=== PATIENT | male | born 1950 | race Caucasian/White ===

== ENCOUNTER 2019-08-30 09:53 | Outpatient (CLI) | payer MEDICARE, SELFPAY ==
--- NOTE | 2019-08-30 | ECG_ITS ---
Measurements Intervals [place] Rate: 70 P: 15 LA: 145 QRS: -52 QRSD: 112 T: 12 QT: 394 QTc: 425 Interpretive Statements SINUS RHYTHM LEFT ANTERIOR FASCICULAR BLOCK ABNORMAL ECG Electronically Signed On 08-30-2019 11:38:14 CDT by Benton Mahoney D.O.
[2019-08-30 11:28] LABS: Basophils Percent Auto 0.4 % (0.2-1.2); Eosinophils Absolute Auto 0.1 K/mm3 (0-0.3); Eosinophils Percent Auto 2.1 % (0-4.4); Hematocrit 45.1 % (42.0-52.0); Hemoglobin 15.4 g/dL (14.0-18.0); Immature Granulocyte Absolute 0.03 K/mm3 (0.00-0.031); Immature Granulocyte Percent A 0.6 % (0-0.5); Lymphocytes Absolute Auto 1.56 K/mm3 (0.9-3.2); Lymphocytes Percent Auto 29.7 % (18.3-44.2); Mean Corpuscular HGB Conc 34.1 g/dl (32-36); Mean Corpuscular Hemoglobin 31.4 pg (26-34); Mean Corpuscular Volume 91.9 fl (80-100); Mean Platelet Volume 9.6 fl (7.4-10.4); Monocytes Absolute Auto 0.6 K/mm3 (0.1-0.6); Monocytes Percent Auto 11.4 % (2.6-8.5); Neutrophils Absolute Auto 2.9 K/mm3 (1.3-6.7); Neutrophils Percent Auto 55.8 % (45.5-73.1); Platelet Count Result 197 k/mm3 (150-375); Red Blood Count 4.91 M/mm3 (4.6-6.20); Red Cell Distribution Width 12.6 % (11.5-14.5); White Blood Count 5.3 K/mm3 (4.5-10.0)
[2019-08-30 11:41] LABS: Alanine Aminotransferase 36 U/L (4-50); Albumin Level 4.6 g/dL (3.5-5.1); Alkaline Phosphatase 80 U/L (38-126); Aspartate Amino Transferase 40 U/L (17-59); Bilirubin,Total 0.6 mg/dL (0.2-1.3); Blood Urea Nitrogen 18 mg/dL (9-20); Carbon Dioxide 25 mmol/L (22-30); Chloride 101 mmol/L (98-107); Cholesterol 246 mg/dL (0-200); Estimated Glomerular Filt Rate > 60; Glucose 103 mg/dL (75-110); HDL Direct 34 mg/dL; Sodium 137 mmol/L (137-145); Triglycerides 183 mg/dL (<150)
[2019-08-30 11:52] LABS: LDL Cholesterol Direct 173 mg/dL
[2019-08-30 11:54] LABS: Hemoglobin A1C 5.7 % (<5.7)
[2019-08-30 12:15] LABS: Prostate Specific Antigen 1.4 ng/mL (< OR = 4.0)
[2019-08-30 12:31] LABS: MALB Creatinine Ratio 11.1 mg/g (0-30); Microalbumin Urine Random 35.6 mg/L (0-16.7)
[2019-08-30 12:32] LABS: Vitamin D 25 Hydroxy 55.1 ng/mL
== END 2019-08-30 09:54 | disposition home or self-care (01) ==
PROVIDERS: PCP Internal Medicine; Visit Provider Internal Medicine
DX: I12.9 Hypertensive chronic kidney disease with stage 1 through stage 4 chronic kidney disease, or unspecified chronic kidney disease (principal); N18.3 Chronic kidney disease, stage 3 (moderate); Z79.899 Other long term (current) drug therapy; Z12.5 Encounter for screening for malignant neoplasm of prostate
CPT/HCPCS: 36415; 80053; 80061; 82043; 82306; 83036; 84153; 84443; 85025; 93005; G0103

== ENCOUNTER 2019-09-05 07:39 | Outpatient (CLI) | payer MEDICARE, SELFPAY ==
--- NOTE | ~2019-09-05 | US_ITS ---
EXAMINATION: US aorta [facility] DATE: 09/05/2019 08:18 INDICATION: Abdominal aortic aneurysm screening with risk factors of hypertension and hypercholestero lemia TECHNIQUE: Grayscale, color Doppler, and pulsed Doppler images of the aorta and common iliac arteries were obtained. COMPARISON: None. FINDINGS: The proximal aorta measures 2.4 x 2.8 cm. The mid aorta measures 2.2 cm AP. The distal aorta measures 2.0 cm AP. The right common iliac artery measures 1.3 cm. The left common iliac artery measures 1.6 cm. IMPRESSION: 1. Normal caliber abdominal aorta. Reviewed, dictated and finalized at location A.
--- NOTE | ~2019-09-05 | CT_ITS ---
EXAMINATION: CT abdomen pelvis wo con DATE: 09/05/2019 08:10 INDICATION: Unilateral inguinal hernia TECHNIQUE: Computed tomography (CT) of the abdomen and pelvis was performed without intravenous contr ast. Automated exposure control and iterative reconstruction technique were employed. Exam dose: 930 .77 mGy-cm total exam DLP. COMPARISON: None. FINDINGS: Minimal atelectasis at the lung bases. Normal heart size. No pericardial or pleural effusio n. The liver, gallbladder, bile ducts, spleen, pancreas, pancreatic duct, and adrenal glands and kidneys are unremarkable; no visceral space-occupying mass lesion is evident on this limited noncontrast exa mination. There is atherosclerotic calcification of the abdominal aorta, iliac and renal arteries as well as ca lcifications of the celiac and superior mesenteric arteries. No intraperitoneal or retroperitoneal or pelvic mass lesion or adenopathy or ascites. Normal appendix. Diverticulosis of the left and right colon; no CT evidence of diverticulitis. There is calcification of the vas deferens bilaterally, suggesting diabetes. There is moderate prosta te enlargement. The urinary bladder is evacuated and not optimally evaluated as a result. Status post left total hip arthroplasty. Right hip osteoarthritis. There is severe degenerative disc disease at L3-4, L4-5 and moderately severe degenerative disc disea se at L5-S1. There is prominent degenerative change at the apophyseal joints of the lumbar spine. Deg enerative spurring of the lower thoracic spine. Small fat-containing left inguinal hernia. Small fat-containing umbilical hernia. IMPRESSION: Small fat-containing left inguinal and umbilical hernias Diverticulosis of left and right colon Bilateral vas deferens calcifications, suggesting diabetes Moderate prostate enlargement Reviewed, dictated and finalized at Location A. Reviewed, dictated and finalized at location B.
== END 2019-09-05 07:40 | disposition home or self-care (01) ==
PROVIDERS: PCP Internal Medicine; Visit Provider Internal Medicine
DX: K40.90 Unilateral inguinal hernia, without obstruction or gangrene, not specified as recurrent (principal); I71.4 Abdominal aortic aneurysm, without rupture; K57.30 Diverticulosis of large intestine without perforation or abscess without bleeding; N40.0 Benign prostatic hyperplasia without lower urinary tract symptoms
CPT/HCPCS: 74176; 76706

== ENCOUNTER 2019-09-25 13:53 | Outpatient (CLI) | payer MEDICARE, SELFPAY ==
--- NOTE | 2019-09-25 14:00 | ECHO_ITS ---
Patient Info Name: Galileo Campos Age: 69 years : 1950 Gender: Male Ht: 69 in Wt: 225 lbs BSA: 2.26 m2 HR: 80 bpm BP: 150 / 102 mmHg Technical Quality: Fair Exam Date: 09/25/2019 2:09 PM Exam Location: [facility] Patient Status: Outpatient Admit Date: 09/25/2019 Staff Ordering Physician: Cruzito Yousif MD Hoe Worker: Romain Wakefield, AUNDREA, RT Attending Provider: Cruzito Yousif MD Exam Type: CA echo doppler color flow Study Info Indications R94.31 - Abnormal electrocardiogram ECG EKG Complete two-dimensional, color flow and Doppler transthoracic echocardiogram is performed. Summary 1. Left ventricular chamber dimension is normal. 2. Left ventricular systolic function is normal, estimated at 55-60%. 3. There is mildly increased left ventricular wall thickness. 4. The left ventricular diastolic function is normal. 5. E/e' 8 is minimally elevated. 6. There is mild aortic valve sclerosis. 7. There is mild tricuspid valve regurgitation. 8. No pulmonary hypertension, estimated pulmonary arterial systolic pressure is 33 mmHg. 9. There is trace pulmonic regurgitation. Left Ventricle E/e' 8 is minimally elevated. Left ventricular chamber dimension is normal. Left ventricular systolic function is normal, estimated at 55-60%. There is mildly increased left ventricular wall thickness. The left ventricular diastolic function is normal. Right Ventricle Right ventricular chamber dimension is normal. Right ventricular systolic function is normal. Left Atria Left atrial chamber dimension is normal. Right Atria Right atrial chamber dimension is normal. Aortic Valve The aortic valve is trileaflet. There is mild aortic valve sclerosis. There is no aortic valve stenosis. There is no aortic valve regurgitation. Pulmonic Valve There is trace pulmonic regurgitation. Mitral Valve There is no mitral valve stenosis. There is no mitral valve regurgitation. Tricuspid Valve There is mild tricuspid valve regurgitation. No pulmonary hypertension, estimated pulmonary arterial systolic pressure is 33 mmHg. Pericardium/Pleural There is no pericardial effusion. Inferior Vena Cava Normal inferior vena cava with >50% collapse upon inspiration consistent with normal right atrial pressure, 5 mmHg. Aorta The aortic root size at the sinus of Valsalva is normal. Left Ventricular Outflow Tract Name Value Normal LVOT 2D LVOT Diameter 2.1 cm LVOT Doppler LVOT Peak Gradient 4 mmHg LVOT Mean Gradient 2 mmHg LVOT VTI 19 cm LVOT VTI/AV VTI Ratio 1.0 LVOT Stroke Volume 68 ml LVOT CO 5.3 l/min LVOT CI 2.3 l/min/m2 Pulmonic Valve Name Value Normal PV Doppler
== END 2019-09-25 13:54 | disposition home or self-care (01) ==
PROVIDERS: PCP Internal Medicine; Visit Provider Internal Medicine
DX: R94.31 Abnormal electrocardiogram [ECG] [EKG] (principal); I08.3 Combined rheumatic disorders of mitral, aortic and tricuspid valves
CPT/HCPCS: 93306

== ENCOUNTER 2020-01-19 08:29 | Outpatient (CLI) | payer MEDICARE, SELFPAY ==
[2020-01-19 09:10] LABS: Anion Gap 13.1 mmol/L (7-16); Blood Urea Nitrogen 17 mg/dL (9-20); Calcium 9.2 mg/dL (8.4-10.2); Carbon Dioxide 24 mmol/L (22-30); Chloride 105 mmol/L (98-107); Cholesterol 189 mg/dL (0-200); Estimated Glomerular Filt Rate > 60; Glucose 117 mg/dL (75-110); HDL Direct 36 mg/dL; Potassium 4.1 mmol/L (3.4-5.0); Sodium 138 mmol/L (137-145); Triglycerides 127 mg/dL (<150)
[2020-01-19 09:20] LABS: Creatinine Urine 164.7 mg/dL; LDL Cholesterol Direct 127 mg/dL
[2020-01-19 09:25] LABS: Microalbumin Urine Random 8.2 mg/L (0-16.7)
== END 2020-01-19 08:30 | disposition home or self-care (01) ==
PROVIDERS: PCP Internal Medicine; Visit Provider Internal Medicine
DX: I10 Essential (primary) hypertension (principal); E78.5 Hyperlipidemia, unspecified
CPT/HCPCS: 36415; 80048; 80061; 82043

== ENCOUNTER 2020-07-16 12:52 | Outpatient (CLI) | payer MEDICARE, SELFPAY ==
[2020-07-16 13:52] LABS: Alanine Aminotransferase 20 U/L (4-50); Albumin Level 4.4 g/dL (3.5-5.1); Alkaline Phosphatase 60 U/L (38-126); Anion Gap 8 mmol/L (8-16); Aspartate Amino Transferase 27 U/L (17-59); Bilirubin,Total 0.7 mg/dL (0.2-1.3); Blood Urea Nitrogen 19 mg/dL (9-20); Calcium 9.2 mg/dL (8.4-10.2); Carbon Dioxide 28 mmol/L (22-30); Chloride 103 mmol/L (98-107); Cholesterol 212 mg/dL (0-200); Estimated Glomerular Filt Rate 60; Glucose 100 mg/dL (75-110); HDL Direct 46 mg/dL; Potassium 4.3 mmol/L (3.4-5.0); Sodium 139 mmol/L (137-145); Triglycerides 150 mg/dL (<150)
[2020-07-16 14:03] LABS: LDL Cholesterol Direct 135 mg/dL
== END 2020-07-16 12:53 | disposition home or self-care (01) ==
PROVIDERS: PCP Internal Medicine; Visit Provider Internal Medicine
DX: E78.5 Hyperlipidemia, unspecified (principal); I10 Essential (primary) hypertension; E78.2 Mixed hyperlipidemia
CPT/HCPCS: 36415; 80053; 80061

== ENCOUNTER 2020-12-28 13:28 | Emergency (ER) | payer MEDICARE, SELFPAY ==
--- NOTE | ~2020-12-28 | XR_ITS ---
EXAMINATION: XR foot LT min 3V DATE: 12/28/2020 13:54 INDICATION: Left foot injury and pain and swelling. TECHNIQUE: 4 views of left foot were obtained. COMPARISON: None. FINDINGS: Bone alignment is normal. No fracture. There is mild osteoarthritis of first metatarsophala ngeal joint and some the interphalangeal joints. There are enthesophytes at the posterior and plantar aspects of calcaneal tuberosity. IMPRESSION: 1. Mild polyarticular osteoarthritis. Reviewed, dictated and finalized at location A.
--- NOTE | ~2020-12-28 | XR_ITS ---
EXAMINATION: XR ankle LT min 3V DATE: 12/28/2020 13:54 INDICATION: Left ankle pain and swelling. TECHNIQUE: 4 views of left ankle were obtained. COMPARISON: None. FINDINGS: Bone alignment is normal. No acute fracture. There is heterotopic ossification distal to me dial and lateral malleoli from old injuries. There is mild mid foot osteoarthritis. There are entheso phytes at the posterior and plantar aspects of calcaneal tuberosity. IMPRESSION: 1. No acute fracture. Reviewed, dictated and finalized at location A. IMPRESSION: 1. No acute fracture.
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
[2020-12-28 13:38] VITALS: BP 155/88; PULSE 69; RESP 18; TEMP 36.7; O2SAT 98
== END 2020-12-28 14:17 | disposition home or self-care (01) ==
PROVIDERS: Emergency Provider Nurse Practitioner; PCP Internal Medicine
DX: M79.672 Pain in left foot (principal); E78.00 Pure hypercholesterolemia, unspecified; I12.9 Hypertensive chronic kidney disease with stage 1 through stage 4 chronic kidney disease, or unspecified chronic kidney disease; N18.30 Chronic kidney disease, stage 3 unspecified; M19.90 Unspecified osteoarthritis, unspecified site
CPT/HCPCS: 73610; 73630; 99213; G0463

== ENCOUNTER 2021-05-01 07:37 | Outpatient (CLI) | payer MEDICARE, SELFPAY ==
[2021-05-01 07:57] LABS: Basophils Percent Auto 0.7 % (0.2-1.2); Eosinophils Absolute Auto 0.1 K/mm3 (0-0.3); Eosinophils Percent Auto 2.5 % (0-4.4); Hematocrit 42.5 % (42.0-52.0); Hemoglobin 14.6 g/dL (14.0-18.0); Immature Granulocyte Absolute 0.02 K/mm3 (0.00-0.031); Immature Granulocyte Percent A 0.4 % (0-0.5); Lymphocytes Absolute Auto 2.15 K/mm3 (0.9-3.2); Lymphocytes Percent Auto 38.5 % (18.3-44.2); Mean Corpuscular HGB Conc 34.4 g/dl (32-36); Mean Corpuscular Hemoglobin 32.5 pg (26-34); Mean Corpuscular Volume 94.7 fl (80-100); Mean Platelet Volume 8.8 fl (7.4-10.4); Monocytes Absolute Auto 0.4 K/mm3 (0.1-0.6); Monocytes Percent Auto 7.5 % (2.6-8.5); Neutrophils Absolute Auto 2.8 K/mm3 (1.3-6.7); Neutrophils Percent Auto 50.4 % (45.5-73.1); Platelet Count Result 202 k/mm3 (150-375); Red Blood Count 4.49 M/mm3 (4.6-6.20); Red Cell Distribution Width 12.1 % (11.5-14.5); White Blood Count 5.6 K/mm3 (4.5-10.0)
[2021-05-01 08:09] LABS: Alanine Aminotransferase 22 U/L (4-50); Albumin Level 4.4 g/dL (3.5-5.1); Alkaline Phosphatase 56 U/L (38-126); Anion Gap 6 mmol/L (8-16); Aspartate Amino Transferase 30 U/L (17-59); Bilirubin,Total 0.5 mg/dL (0.2-1.3); Blood Urea Nitrogen 20 mg/dL (9-20); Calcium 9.1 mg/dL (8.4-10.2); Carbon Dioxide 28 mmol/L (22-30); Chloride 106 mmol/L (98-107); Cholesterol 167 mg/dL (0-200); Estimated Glomerular Filt Rate 60; Glucose 117 mg/dL (65-110); HDL Direct 45 mg/dL; Potassium 4.5 mmol/L (3.4-5.0); Sodium 140 mmol/L (137-145); Triglycerides 88 mg/dL (<150)
[2021-05-01 08:22] LABS: LDL Cholesterol Direct 100 mg/dL
[2021-05-01 08:40] LABS: Prostate Specific Antigen 2.6 ng/mL (< OR = 4.0)
[2021-05-01 10:13] LABS: Vitamin D 25 Hydroxy 50.8 ng/mL
== END 2021-05-01 07:38 | disposition home or self-care (01) ==
LOC: ANHLAB 07:41
PROVIDERS: PCP Internal Medicine; Visit Provider Internal Medicine
DX: E78.2 Mixed hyperlipidemia (principal); E55.9 Vitamin D deficiency, unspecified; I12.9 Hypertensive chronic kidney disease with stage 1 through stage 4 chronic kidney disease, or unspecified chronic kidney disease; N18.30 Chronic kidney disease, stage 3 unspecified; Z12.5 Encounter for screening for malignant neoplasm of prostate
CPT/HCPCS: 36415; 80053; 80061; 82306; 84153; 84443; 85025; G0103

== ENCOUNTER 2023-06-04 10:03 | Outpatient (CLI) | payer MEDICARE, SELFPAY ==
[2023-06-04 11:08] LABS: Hematocrit 42.9 % (42.0-52.0); Hemoglobin 14.5 g/dL (14.0-18.0); Mean Corpuscular HGB Conc 33.8 g/dl (32-36); Mean Corpuscular Hemoglobin 31.7 pg (26-34); Mean Corpuscular Volume 93.7 fl (80-100); Mean Platelet Volume 9.9 fl (7.4-10.4); Platelet Count Result 179 k/mm3 (150-375); Red Blood Count 4.58 M/mm3 (4.6-6.20); Red Cell Distribution Width 12.7 % (11.5-14.5); White Blood Count 4.5 K/mm3 (4.5-10.0)
[2023-06-04 11:22] LABS: Hemoglobin A1C 5.6 % (<5.7)
[2023-06-04 12:21] LABS: Alanine Aminotransferase 19 U/L (6-50); Albumin Level 4.2 g/dL (3.5-5.1); Alkaline Phosphatase 69 U/L (38-126); Anion Gap 6 mmol/L (8-16); Aspartate Amino Transferase 25 U/L (17-59); Bilirubin,Total 0.7 mg/dL (0.2-1.3); Blood Urea Nitrogen 20 mg/dL (9-20); Calcium 9.2 mg/dL (8.4-10.2); Carbon Dioxide 25 mmol/L (22-30); Chloride 109 mmol/L (98-107); Cholesterol 291 mg/dL (0-200); Estimated Glomerular Filt Rate > 60; Glucose 112 mg/dL (65-110); HDL Direct 46 mg/dL; Phosphorus 3.7 mg/dL (2.5-4.5); Sodium 140 mmol/L (137-145); Triglycerides 109 mg/dL (<150)
[2023-06-04 12:35] LABS: LDL Cholesterol Direct 182 mg/dL
[2023-06-04 12:56] LABS: Prostate Specific Antigen 1.8 ng/mL (< OR = 4.0)
[2023-06-08 01:07] LABS: Vitamin D 1,25 (OH)2 Total 37 pg/mL (18-72); Vitamin D2 1,25 (OH)2 <8 pg/mL; Vitamin D3 1,25 (OH)2 37 pg/mL
== END 2023-06-04 10:04 | disposition home or self-care (01) ==
PROVIDERS: PCP Family Medicine; Visit Provider Family Medicine
DX: E55.9 Vitamin D deficiency, unspecified (principal); Z00.00 Encounter for general adult medical examination without abnormal findings; I12.9 Hypertensive chronic kidney disease with stage 1 through stage 4 chronic kidney disease, or unspecified chronic kidney disease; N18.30 Chronic kidney disease, stage 3 unspecified; Z12.5 Encounter for screening for malignant neoplasm of prostate; E78.5 Hyperlipidemia, unspecified
CPT/HCPCS: 36415; 80053; 80061; 82652; 83036; 84100; 84153; 85027; G0103

== ENCOUNTER 2023-07-27 01:22 | Day surgery (SDC) | payer MEDICARE, SELFPAY ==
[2023-07-20 09:57] VITALS: BMI 32.5
--- NOTE | 2023-07-23 10:43 | SUR.PREOP ---
Patient called regarding upcoming procedure. Reviewed preop instructions, appointment times, and procedure prep.
[2023-07-27 10:14] VITALS: BP 131/73; PULSE 18; RESP 18; TEMP 36.4; O2SAT 97; BMI 32.7
[2023-07-27] MEDS: LACTATED RINGERS 1,000 ML 150 ML IV CONT (10:33)
--- NOTE | 2023-07-27 10:42 | WPDANESEPPF ---
Anes - Initial Pre Proc Eval Procedure: Operation Date: 07/27/23 11:30 Proposed Procedures p Colonoscopy - Man Weller MD Date/Time: 07/27/23 10:42 Surgeon: Man Weller MD Pre Op Diagnosis: Other fecal abnormalities Patient Data Age: 73 Gender: M Height: 1.75 m Weight: 100.5 kg Last Vital Signs Temp 97.6 F 07/27/23 10:14 Pulse 18 L 07/27/23 10:14 Resp 18 07/27/23 10:14 BP 131/73 07/27/23 10:14 Pulse Ox 97 07/27/23 10:14 O2 Del Method Room Air 07/27/23 10:14 Allergies Allergy/AdvReac Type Severity Reaction Status Date / Time No Known Allergies Allergy Verified 07/27/23 10:20 Home Medications Medication Instructions Recorded Confirmed Type lisinopril 20 mg tablet 20 mg PO DAILY #90 tabs 01/15/23 07/27/23 Rx amlodipine 10 mg tablet See Rx Instructions .Route 04/13/23 07/27/23 Rx .COMPLEX #90 tabs ezetimibe 10 mg tablet 10 mg PO DAILY #90 tabs 06/08/23 07/27/23 Rx doxazosin 4 mg tablet See Rx Instructions .Route 07/23/23 07/27/23 Rx .COMPLEX #90 tabs Patient hx anesthesia problems: none Family hx anesthesia problems: none Results Review: All pre-operative results and documents have been reviewed as part of the pre-operative evaluation. [facility] Past Medical History Medical History Chronic right shoulder pain CKD (chronic kidney disease) stage 3, GFR 30-59 ml/min Degenerative disc disease Dupuytren contracture Dyslipidemia Essential hypertension Hernia Hip replacement planned Hypovitaminosis D Obesity (BMI 30.0-34.9) Osteoarthritis Surgical History Surgical History H/O inguinal hernia repair History of hip replacement, total Family History Family History Sibling Hypertension Mother Patient's mother is in good health COPD (chronic obstructive pulmonary disease) Tumor Father Social History Social History (Reviewed 06/08/23 @ 09:01 by DAVE Cerna Smoking status: Never smoker Second hand tobacco smoke exposure: No Alcohol intake: current Drinks per week: 4 Substance use: current Substance use type: marijuana Last use: daily Lack of Transportation: No Lack of Food: Never True Current Housing: I Have Housing Concerned About Future Housing: No Difficulty Paying Gas/Electric Bills: No Difficulty Paying for Meds: No Living arrangements: with family Gender identity (if verbalized by the patient): Male Spiritual care concerns: No Anes - Eval Final PreProcedure Day of Procedure 07/27/23 10:42 Patient weight: obese Heart: regular rate and rhythm Lungs: clear to auscultation Airway: Mallampati scale class II Neurological: alert and oriented Last oral intake: >/= 8 hours ASA classification: III Emergent: no Anesthetic plan: proceed Anesthesia type and monitoring: general GIVS and standard monitoring Results Review: All pre-operative results and documents have been reviewed as part of the pre-operative evaluation. Informed Consent: The patient's anesthetic plan and its attendant risks and benefits were discussed with the patient/family/POA. Questions were solicited and answers provided to the satisfaction of the patient/family/POA.
--- NOTE | 2023-07-27 10:50 | PM.HPGS ---
History of Present Illness History of Present Illness Consent: Risks, benefits, and alternatives have been discussed and questions answered. Patient agrees to proceed with procedure. Chief complaint: Other fecal abnormalities Narrative: Galileo Campos is a 73 year old male with + cologuard, had colonoscopy 10 years ago Review of Systems Constitutional: Constitutional: Denies headache(s) and Denies weakness Eyes: Eyes: Denies blurry vision ENT: Reports Normal hearing present, Denies headache(s) and Denies neck pain Cardiovascular: Cardiovascular: Denies chest pain and Denies dyspnea Respiratory: Respiratory: Denies dyspnea Gastrointestinal: Gastrointestinal: Reports no additional gastrointestinal complaints Genitourinary: Genitourinary: Denies dysuria Musculoskeletal: Musculoskeletal: Denies neck pain Integumentary/Breasts: Skin/Breast: Denies dry skin Neurologic: Reports Normal hearing present, Denies headache(s) and Denies weakness Psychiatric: Psychiatric: Denies anxiety Endocrine: Endocrine: Denies change in body appearance Hematologic/Lymphatic: Hematologic/Lymphatic: Denies easy bleeding Allergic/Immunologic: Allergic/Immunologic: Denies urticaria PMFSH Past Medical History Medical History Chronic right shoulder pain CKD (chronic kidney disease) stage 3, GFR 30-59 ml/min Degenerative disc disease Dupuytren contracture Dyslipidemia Essential hypertension Hernia Hip replacement planned Hypovitaminosis D Obesity (BMI 30.0-34.9) Osteoarthritis Surgical History Surgical History H/O inguinal hernia repair History of hip replacement, total Family History Family History Sibling Hypertension Mother Patient's mother is in good health COPD (chronic obstructive pulmonary disease) Tumor Father Social History Social History Smoking status: Never smoker Second hand tobacco smoke exposure: No Alcohol intake: current Drinks per week: 4 Substance use: current Substance use type: marijuana Last use: daily Lack of Transportation: No Lack of Food: Never True Current Housing: I Have Housing Concerned About Future Housing: No Difficulty Paying Gas/Electric Bills: No Difficulty Paying for Meds: No Living arrangements: with family Gender identity (if verbalized by the patient): Male Spiritual care concerns: No Meds Home Medications and Allergies Home Medications Medication Instructions Recorded Confirmed Type lisinopril 20 mg tablet 20 mg PO DAILY #90 tabs 01/15/23 07/27/23 Rx amlodipine 10 mg tablet See Rx Instructions .Route 04/13/23 07/27/23 Rx .COMPLEX #90 tabs ezetimibe 10 mg tablet 10 mg PO DAILY #90 tabs 06/08/23 07/27/23 Rx doxazosin 4 mg tablet See Rx Instructions .Route 07/23/23 07/27/23 Rx .COMPLEX #90 tabs Allergies Allergy/AdvReac Type Severity Reaction Status Date / Time No Known Allergies Allergy Verified 07/27/23 10:20 Vital Signs Vital Signs - 24 hr 07/27/23 10:14 Temperature 97.6 F Pulse Rate 18 L Respiratory Rate 18 Blood Pressure 131/73 Pulse Oximetry 97 Oxygen Delivery Room Air Exam Const: General: comfortable and no acute distress HENMT: Face/Nose/Sinus: Normal nares present Eyes: General: appearance normal, both eyes and all related structures Neck: Neck: no JVD Resp: Auscultation: clear to auscultation bilaterally Cardio: Rate: regular rate Rhythm: regular rhythm GI: Inspection: non-distended GI Palp: Yes Soft to palpation Skin: General skin exam: normal color Neuro: General: gait normal Speech: normal speech Extrem: General: normal to inspection Psych: Mental Status: mental status grossly normal Assessment and Plan Assessment and plan (1) Positive col
[2023-07-27 11:06] VITALS: BP 100/64; PULSE 70; RESP 18; O2SAT 93
[2023-07-27 11:16] VITALS: BP 109/66; PULSE 66; RESP 18; O2SAT 95
[2023-07-27 11:26] VITALS: BP 113/69; PULSE 70; RESP 18; O2SAT 95
== END 2023-07-27 11:35 | disposition home or self-care (01) ==
PROVIDERS: PCP Family Medicine; Visit Provider Internal Medicine Gastroenterology
PROC: 0DJD8ZZ Inspection of Lower Intestinal Tract, Via Natural or Artificial Opening Endoscopic (ICD-10-PCS; CPT 45378; principal; 2023-07-27 11:30)
DX: D12.2 Benign neoplasm of ascending colon (principal); D12.3 Benign neoplasm of transverse colon; K57.30 Diverticulosis of large intestine without perforation or abscess without bleeding; K64.8 Other hemorrhoids; I12.9 Hypertensive chronic kidney disease with stage 1 through stage 4 chronic kidney disease, or unspecified chronic kidney disease; N18.30 Chronic kidney disease, stage 3 unspecified; E78.5 Hyperlipidemia, unspecified; E66.9 Obesity, unspecified; Z68.32 Body mass index [BMI] 32.0-32.9, adult; F12.90 Cannabis use, unspecified, uncomplicated
CPT/HCPCS: 45380; 45385; 88305; J2704; J7120

== ENCOUNTER 2024-02-10 10:27 | Outpatient (CLI) | payer MEDICARE, SELFPAY ==
[2024-02-10 11:02] LABS: Hematocrit 44.4 % (42.0-52.0); Hemoglobin 15.2 g/dL (14.0-18.0); Mean Corpuscular HGB Conc 34.2 g/dl (32-36); Mean Corpuscular Hemoglobin 32.2 pg (26-34); Mean Corpuscular Volume 94.1 fl (80-100); Mean Platelet Volume 9.6 fl (7.4-10.4); Platelet Count Result 169 k/mm3 (150-375); Red Blood Count 4.72 M/mm3 (4.6-6.20); Red Cell Distribution Width 13.1 % (11.5-14.5); White Blood Count 4.8 K/mm3 (4.5-10.0)
[2024-02-10 11:26] LABS: Alanine Aminotransferase 17 U/L (6-50); Albumin Level 4.3 g/dL (3.5-5.1); Alkaline Phosphatase 64 U/L (38-126); Anion Gap 9 mmol/L (4-12); Aspartate Amino Transferase 25 U/L (17-59); Bilirubin,Total 0.7 mg/dL (0.2-1.3); Blood Urea Nitrogen 22 mg/dL (9-20); Carbon Dioxide 25 mmol/L (22-30); Chloride 104 mmol/L (98-107); Estimated Glomerular Filt Rate 60; Glucose 116 mg/dL (65-110); Potassium 4.2 mmol/L (3.4-5.0); Sodium 138 mmol/L (137-145)
== END 2024-02-10 10:28 | disposition home or self-care (01) ==
PROVIDERS: PCP Family Medicine; Visit Provider Family Medicine
DX: E66.9 Obesity, unspecified (principal); E78.5 Hyperlipidemia, unspecified; I12.9 Hypertensive chronic kidney disease with stage 1 through stage 4 chronic kidney disease, or unspecified chronic kidney disease; N18.30 Chronic kidney disease, stage 3 unspecified
CPT/HCPCS: 36415; 80053; 85027

== ENCOUNTER 2024-02-14 07:44 | Outpatient (CLI) | payer MEDICARE, SELFPAY ==
[2024-02-14 09:00] LABS: Iron 115 ug/dL (49-181)
[2024-02-14 09:10] LABS: Percent Iron Saturation 36 % (20-50)
[2024-02-14 11:12] LABS: Hemoglobin A1C 5.7 % (<5.7)
== END 2024-02-14 07:45 | disposition home or self-care (01) ==
PROVIDERS: PCP Family Medicine; Visit Provider Family Medicine
DX: G25.81 Restless legs syndrome (principal); I12.9 Hypertensive chronic kidney disease with stage 1 through stage 4 chronic kidney disease, or unspecified chronic kidney disease; N18.30 Chronic kidney disease, stage 3 unspecified; Z79.899 Other long term (current) drug therapy
CPT/HCPCS: 36415; 82607; 82728; 83036; 83540; 83550

== ENCOUNTER 2024-04-06 09:12 | Outpatient (CLI) | payer MEDICARE, SELFPAY ==
--- NOTE | ~2024-04-06 | US_ITS ---
US arterial ankle brachial ind INDICATION: Peripheral vascular disease TECHNIQUE: Segmental pressures and plethysmographic and Doppler waveforms of the brachial and lower e xtremity arteries were obtained. COMPARISON: None. FINDINGS: Right and left brachial artery pressures of 138 mm Hg and 130 mm Hg, respectively, are concordant (no rmal difference <= 30 mmHg). The right ankle-brachial index (KATY) is 1.13 (normal >= 0.9-1.0). The right great toe-brachial index (TBI) is 0.59 (normal >= 0.60). The left KATY is 1.13. The left TBI is 0.51. IMPRESSION: 1. Diminished bilateral toe brachial indices consistent with mild peripheral arterial disease. Reviewed, dictated and finalized at location B. IMPRESSION: 1. Diminished bilateral toe brachial indices consistent with mild peripheral ar terial disease.
== END 2024-04-06 09:13 | disposition home or self-care (01) ==
LOC: ANHIMG 09:15
PROVIDERS: PCP Family Medicine; Visit Provider Family Medicine
DX: I73.9 Peripheral vascular disease, unspecified (principal)
CPT/HCPCS: 93922

== ENCOUNTER 2025-02-26 12:48 | Outpatient (CLI) | payer MEDICARE, SELFPAY ==
--- OUTSIDE RECORDS SUMMARY | 2025-02-26 12:53 | XMS_ITS | Clinical Summary ---
Author Organization [facility] Address [address] [place] [id number] Phone Care Team Providers Care Director Of Provider Relations Name Role Phone Unavailable Primary Care Provider Unavailabl e Social History Tobacco Use Types Packs/Day Years Used Date Smoking Tobacco: Never Assessed Sex and Gender Information Value Date Recorded Sex Assigned at Not on file Legal Sex Male 7:56 PM CDT Gender Identity Not on file Sexual Orientation Not on file Plan of Treatment Health Maintenance Due Date Last Done Comments Hepatitis C Virus (HCV) Screening 1950 TdaP Immunization 1950 Cologuard 02/19/1997 Colonoscopy 02/19/1997 Colorectal Cancer Screening 02/19/1997 Immunochemical Fecal Occult Blood 02/19/1997 Pneumococcal Immunization (5 0+ years) (1 of 1 - PCV) 02/19/2002 Zoster Immunization (1 of 2) 02/19/2002 SARS-COV-2 Immunization ( - season) 2024 04/23/2021, 08/28/2020, 07/30/2020 Influenza Immunization (#1) 2025 03/26/2020 Respiratory Syncytial Virus (RSV) Immunization (Adult) (1 - 1-dose 75+ series) 02/19/2027 Hepatitis B Immunization Aged Out No longer eligible based on patient's age to complete this topic Human Papillomavirus (HPV) Immunization Aged Out No longer eligible b ased on patient's age to complete this topic Meningococcal Immunization (ACWY) Aged Out No longer eligible b ased on patient's age to complete this topic Rotavirus Immunization Aged Out No lo nger eligible based on patient's age to complete this topic
--- NOTE | 2025-02-26 13:00 | NEURO_ITS ---
Impression: # Non-diabetic complains of numbness of lower extremities. ? # No history of back surgery. ? 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 Nerve Conduction Studies ?Stim Site NR Peak (ms) P-T Amp (?V) Site1 Site2 Delta-P (ms) Dist (cm) Wayne (m/s) Left Sup Fibular Anti Sensory (Ant Lat Mall)??? NO RESPONSE 14 cm NR 14 cm Ant Lat Mall 16.0 Right Sup Fibular Anti Sensory (Ant Lat Mall)??? NO RESPONSE 14 cm NR 14 cm Ant Lat Mall 16.0 Left Sural Anti Sensory (Lat Mall)??? NO RESPONSE Calf NR Calf Lat Mall 16.0 Right Sural Anti Sensory (Lat Mall)??? NO RESPONSE Calf NR Calf Lat Mall 16.0 ?Stim Site NR Onset (ms) O-P Amp (mV) Site1 Site2 Delta-0 (ms) Dist (cm) [place] (m/s) Left Peroneal Motor (Vastus Med) Ankle ? 3.7 1.5 Popit Ankle 9.3 40.0 43 Popit ? 13.0 0.2 Right Peroneal Motor (Vastus Med) Ankle ? 3.7 1.2 Popit Ankle 9.7 40.0 41 Popit ? 13.4 0.7 Left Tibial Motor (Abd Bear Brev) Ankle ? 4.5 0.7 Knee Ankle 9.4 41.0 44 Knee ? 14.9 1.2 Right Tibial Motor (Abd Bear Brev) Ankle ? 3.5 1.0 Knee Ankle 8.6 40.0 47 Knee ? 12.1 0.4 F Wave Studies ?NR F-Lat (ms) L-R F-Lat (ms) Left Peroneal (Mrkrs) (EDB)??? DISPERSED RESPONSE NR Right Peroneal (Mrkrs) (EDB) ? 57.31 Left Tibial (Mrkrs) (Abd Hallucis) ? 58.60 1.29 Right Tibial (Mrkrs) (Abd Hallucis) ? 57.31 1.29 Electromyography ?Side Muscle Nerve Root Ins Act Fibs Amp Dur Recrt Comment Right AntTibialis Dp Br Fibular L4-5 Nml Nml Nml >12ms Nml Left AntTibialis Dp Br Fibular L4-5 Nml Nml Nml >12ms Nml Right Ext Dig Brev Dp Br Fibular L5, S1 Nml Nml Nml >12ms Nml Left Ext Dig Brev Dp Br Fibular L5, S1 Nml Nml Nml >12ms Nml Right Fibularis Long Sup Br Fibular L5-S1 Nml Nml Nml >12ms Nml Left Fibularis Long Sup Br Fibular L5-S1 Nml Nml Nml >12ms Nml Right Flex Dig Long Tibial L5-S2 Nml Nml Nml >12ms Nml Left Flex Dig Long Tibial L5-S2 Nml Nml Nml >12ms Nml Right Gastroc Tibial S1-2 Nml Nml Nml >12ms Nml Left Gastroc Tibial S1-2 Nml Nml Nml >12ms Nml Right QuadratusFem QuadFemoris L4-5, S1 Nml Nml Nml Nml Nml Left QuadratusFem QuadFemoris L4-5, S1 Nml Nml Nml Nml Nml
== END 2025-02-26 12:49 | disposition home or self-care (01) ==
PROVIDERS: PCP Family Medicine; Visit Provider Family Medicine
DX: G62.9 Polyneuropathy, unspecified (principal)
CPT/HCPCS: 95886; 95910

== ENCOUNTER 2025-03-05 12:48 | Outpatient (CLI) | payer MEDICARE, SELFPAY ==
[2025-03-05 13:34] LABS: Hematocrit 41.9 % (42.0-52.0); Hemoglobin 14.3 g/dL (14.0-18.0); Mean Corpuscular HGB Conc 34.1 g/dl (32-36); Mean Corpuscular Hemoglobin 31.6 pg (26-34); Mean Corpuscular Volume 92.7 fl (80-100); Platelet Count Result 112 k/mm3 (150-375); Red Blood Count 4.52 M/mm3 (4.6-6.20); White Blood Count 5.8 K/mm3 (4.5-10.0)
[2025-03-05 13:55] LABS: Alanine Aminotransferase 20 U/L (6-50); Albumin Level 4.4 g/dL (3.5-5.1); Alkaline Phosphatase 62 U/L (38-126); Anion Gap 7 mmol/L (4-12); Aspartate Amino Transferase 28 U/L (17-59); Bilirubin,Total 0.5 mg/dL (0.2-1.3); Blood Urea Nitrogen 18 mg/dL (9-20); Calcium 8.9 mg/dL (8.4-10.2); Carbon Dioxide 25 mmol/L (22-30); Chloride 106 mmol/L (98-107); Cholesterol 249 mg/dL (0-200); Estimated Glomerular Filt Rate > 60; Glucose 111 mg/dL (65-110); HDL Direct 52 mg/dL; Potassium 4.2 mmol/L (3.4-5.0); Sodium 138 mmol/L (137-145); Total Protein 7.1 g/dL (6.3-8.2); Triglycerides 155 mg/dL (<150)
[2025-03-05 14:30] LABS: Prostate Specific Antigen 2.7 ng/mL (< OR = 4.0)
[2025-03-06 07:09] LABS: C-Reactive Protein, Cardiac 2.84 mg/L (0.00-3.00)
== END 2025-03-05 12:49 | disposition home or self-care (01) ==
PROVIDERS: PCP Family Medicine; Visit Provider Family Medicine
DX: E78.5 Hyperlipidemia, unspecified (principal); E55.9 Vitamin D deficiency, unspecified; E66.9 Obesity, unspecified; G25.81 Restless legs syndrome; Z00.00 Encounter for general adult medical examination without abnormal findings; Z79.899 Other long term (current) drug therapy; I12.9 Hypertensive chronic kidney disease with stage 1 through stage 4 chronic kidney disease, or unspecified chronic kidney disease; N18.30 Chronic kidney disease, stage 3 unspecified; Z12.5 Encounter for screening for malignant neoplasm of prostate
CPT/HCPCS: 36415; 80053; 80061; 82306; 84153; 85027; 86141; G0103

== ENCOUNTER 2025-03-29 13:20 | Outpatient (CLI) | payer MEDICARE, SELFPAY ==
[2025-03-29 14:12] LABS: Hematocrit 42.1 % (42.0-52.0); Hemoglobin 14.1 g/dL (14.0-18.0); Immature Granulocyte Percent A 0.2 % (0-0.5); Immature Platelet Fraction Pct 10.2 % (0.9-11.2); Lymphocytes Absolute Auto 1.86 K/mm3 (0.9-3.2); Mean Corpuscular HGB Conc 33.5 g/dl (32-36); Mean Corpuscular Hemoglobin 31.1 pg (26-34); Mean Corpuscular Volume 92.7 fl (80-100); Nucleated Red Blood Cells Absolute Auto 0.000 K/mm3 (0.0-0.012); Nucleated Red Blood Cells Perc 0.0 % (0.0-0.2); Red Blood Count 4.54 M/mm3 (4.6-6.20); White Blood Count 6.3 K/mm3 (4.5-10.0)
[2025-03-29 14:38] LABS: Schistocytes None Seen
== END 2025-03-29 13:21 | disposition home or self-care (01) ==
PROVIDERS: PCP Family Medicine; Visit Provider Family Medicine
DX: D69.6 Thrombocytopenia, unspecified (principal)
CPT/HCPCS: 36415; 85025; 85055